=== PATIENT | male | born 1940 | race Caucasian/White ===

== ENCOUNTER 2019-03-19 16:48 | Emergency (ER) | payer MEDICARE, OTHER ==
--- NOTE | 2019-03-19 17:08 | ED Physician Documentation ---
General Adult - HISTORIAN Historian: patient - HPI Stated Complaint: rt side chest pain, fast hr Chief Complaint: General Adult Further Comments: yes (78 year old male patient presents with complaint of right lower chest wall pain; RUQ pain which he reports started 1 hour [employer]WALK[employer]. Patient states he was sitting at the chair when it occurred, denies any N/V, SOB or radiation of pain. Denies any previous episodes.) - ROS CONST: no problems EYES/ENT: none CVS/RESP: none GI/: none MS/SKIN/LYMPH: none NEURO/PSYCH: denies: headache, fainting, dizziness, tingling, numbness, difficulty walking, difficulty with speech, anxiety, depression, other - PAST HX Past History: hypertension Other History: diabetes Type 2, other (GERD, HLD) Surgeries/Procedures: cholecystectomy Allergies/Adverse Reactions: Allergies Allergy/AdvReac Type Severity Reaction Status Date / Time Penicillins Allergy Severe Anaphylaxis Verified 03/19/19 17:15 Home Medications: Ambulatory Orders Medication Instructions Recorded Glimepiride [Amaryl] 2 mg PO DAILY 03/19/19 Metformin HCl 1,000 mg PO BID 03/19/19 Omeprazole 20 mg PO DAILY 03/19/19 Pioglitazone HCl 45 mg PO DAILY 03/19/19 Quinapril HCl 10 mg PO DAILY 03/19/19 - SOCIAL HX Smoking History: non-smoker - FAMILY HX Family History: No - REVIEWED ASSESSMENTS Nursing Assessment Reviewed: Yes Vitals Reviewed: Yes Progress - Progress Progress: Pain has resolved while patient was in the ER; no further complaints. - EKG/XRAY/CT EKG: rhythm (SR, no acute changes, rate 81) ED Results Lab/Radiology - Radiology Radiology Impressions: HISTORY: CHEST PAIN. COMPARISON: None provided. CHEST, FRONTAL AND LATERAL: Upper mediastinum: Not widened. Heart: Mild cardiomegaly. Lungs: No lobar infiltrate, pulmonary edema, pneumothorax or significant effusion. Skeleton: Thoracic spine spondylosis. IMPRESSION: Mild cardiomegaly. No acute pulmonary process. Dr. Romel Waldron - Orders Orders: ED Orders Category Date Time Status Continuous EKG monitoring Q30M Care 03/19/19 17:08 Ordered Continuous Pulse Oximetry Q30M Care 03/19/19 17:[address] IV Lock 1T Care 03/19/19 17:08 Ordered CBC/PLATELET/DIFF Stat Lab 03/19/19 17:08 Ordered CMP Stat Lab 03/19/19 17:08 Ordered TROPONIN I Stat Lab 03/19/19 17:08 Ordered EKG WITH COMPARISON Stat Ther 03/19/19 17:08 Ordered General Adult Physical Exam - PHYSICAL EXAM GENERAL APPEARANCE: [id number] N EENT: eye inspection normal, ROMEO RESPIRATORY: no resp distress, chest non-tender, breath sounds normal CVS: reg rate & rhythm, heart sounds normal, equal pulses, no murmur, no gallop, PMI nml, no JVD, no friction rub, 24 ABDOMEN: soft, no organomegaly, normal bowel sounds, no abdominal bruit, no distension SKIN: normal color, warm/dry, NR, INT, PAL, DR EXTREMITIES: non-tender, normal range of motion, no evidence of injury, no edema, J, [employer] NEURO: oriented X3, CN's nml as tested, motor nml, sensation nml, mood/affect nml Discharge Clincal Impression: Right-sided chest wall pain Abdominal hernia Qualifiers: Hernia type: ventral Obstruction and gangrene presence: without obstruction or gangrene Qualified Code(s): K43.9 - Ventral hernia without obstruction or gangrene Referrals: Primary Doctor,No [Primary Care Provider] - 2 Days Additional Instructions: Make a follow up appointment to see your primary care doctor for a recheck. Please discuss the abdominal wall hernia with your doctor. Condition: Stable Disposition: 01 HOME, SELF-CARE Decision to Admit: NO Decision Time: 18:01
[2019-03-19 17:16] LABS: BASOPHILS % 0.5 % (0.0-1.5); NEUTROPHILS # 3.8 # k/uL (1.4-7.7)
[2019-03-19 17:24] LABS: eGFR (Non-African) 58
--- NOTE | 2019-03-19 17:58 | Diagnostic Imaging Report ---
PATIENT MR#: [id number] PATIENT PATIENT NAME: CORAZON MAC DATE OF : 1940 REFERRING PHYSICIAN: CHRISTEL BARRETO EXAM DATE: 03/19/2019 ACCESSION NUMBER: [id number] EXAM DESCRIPTION: CHEST 2VIEW HISTORY: CHEST PAIN. COMPARISON: None provided. CHEST, FRONTAL AND LATERAL: Upper mediastinum: Not widened. Heart: Mild cardiomegaly. Lungs: No lobar infiltrate, pulmonary edema, pneumothorax or significant effusion. Skeleton: Thoracic spine spondylosis. IMPRESSION: Mild cardiomegaly. No acute pulmonary process. Read by: Dr. Romel Waldron Transcribed by: Romel Waldron Transcribed Date: 03/19/2019 5:57:05 PM Electronically signed by: Dr. Romel Waldron Date signed: 03/19/2019 5:57:38 PM
[2019-03-19 18:21] VITALS: BP 126/59
== END 2019-03-19 18:17 | disposition home or self-care (01) ==
LOC: ED 16:48
DX: K43.9 Ventral hernia without obstruction or gangrene (principal); R07.89 Other chest pain
CPT/HCPCS: 71046; 80053; 84484; 85025; 93005; 99283; S1016